=== PATIENT | female | born 1995 | race Caucasian/White ===

== ENCOUNTER 2018-07-12 01:04 | Inpatient (IN) | payer OTHER ==
[2018-07-12] MEDS ORDERED: Water For Irrigation,Sterile 1,000 ML Container IRR PRN (01:22)
[2018-07-12] MEDS ORDERED: Nalbuphine 10 MG/1 ML Vial IVPUSH PRN (01:22)
[2018-07-12] MEDS ORDERED: Carboprost Tromethamine 250 MCG/1 ML Amp IM PRN (01:22)
[2018-07-12] MEDS ORDERED: Tranexamic Acid 1,000 MG in Sodium Chloride 0.9% 100 ML IV PRN (01:22)
[2018-07-12] MEDS ORDERED: Sodium Chloride 0.9% 2.5 ML Syringe FLUSH PRN (01:22)
[2018-07-12] MEDS ORDERED: Butorphanol 1 MG/ML SDV IVPUSH PRN (01:22)
[2018-07-12] MEDS ORDERED: Lidocaine 1% 50 ML MDV INJECT PRN (01:22)
[2018-07-12] MEDS ORDERED: Sodium Chloride 0.9% 10 ML Syringe FLUSH PRN (01:22)
[2018-07-12] MEDS ORDERED: Methylergonovine 0.2 MG/1 ML Amp IM PRN (01:22)
[2018-07-12] MEDS ORDERED: Misoprostol 200 MCG Tab PO PRN (01:22)
[2018-07-12] MEDS ORDERED: Oxytocin/0.9 % Sodium Chloride 30 UNIT/500 ML BAG IV SCH (01:30)
[2018-07-12] MEDS ORDERED: Lactated Ringers 1,000 ML IV SCH (01:30)
[2018-07-12] MEDS ORDERED: Benzocaine/Menthol 20%-0.5% Spray 78 GM Cannister TOP PRN (02:00)
[2018-07-12] MEDS ORDERED: Bisacodyl 10 MG Supp RECTAL PRN (02:00)
[2018-07-12] MEDS ORDERED: Ondansetron 4 MG/2 ML SDV IVPUSH PRN (02:00)
[2018-07-12] MEDS ORDERED: oxyCODONE 5 MG Tab PO PRN (02:00)
[2018-07-12] MEDS ORDERED: Ibuprofen 400 MG Tab PO PRN (02:00)
[2018-07-12] MEDS ORDERED: Lanolin 100% Cream 7 GM Tube TOP PRN (02:00)
[2018-07-12] MEDS ORDERED: Docusate Sodium 100 MG Cap PO PRN (02:00)
[2018-07-12] MEDS ORDERED: Acetaminophen 500 MG Tab PO PRN ×2 (02:00)
--- NOTE | 2018-07-12 02:08 | PCM.OPNOTE ---
- General Post-Op/Procedure Note Date of Surgery/Procedure: 07/12/18 Operative Procedure(s): /2nd MLL repaired Findings: Viable male APGARS 8. 9 weight 3080 gm. Spontaneous delivery intact placenta with 3V cord Pre Op Diagnosis: 40/2 week IUP. Active labor Post-Op Diagnosis: same Anesthesia Technique: Local (pudendal) Primary Surgeon: Love Vasquez EBL in mLs: 350 Complications: None Condition: Good Free Text/Narrative:: Dictation [id number]
[2018-07-12] MEDS: Ibuprofen 800 MG Tab PO PRN ×2 (02:23→17:39)
[2018-07-12] MEDS: Witch Hazel Medicated Pads 40/Jar TOP PRN ×2 (02:24→21:09)
--- NOTE | 2018-07-12 03:15 | OR ---
SURGEON: Love Vasquez M.D. DATE OF PROCEDURE: 07/12/2018 PREOPERATIVE DIAGNOSES: 1. A 40 and 2 week intrauterine . 2. Active labor. POSTOPERATIVE DIAGNOSES: 1. A 40 and 2 week intrauterine . 2. Active labor. PROCEDURE: Spontaneous vaginal delivery, second-degree midline laceration repaired ANESTHESIA: Pudendal/local. ESTIMATED BLOOD LOSS: 350 mL. FINDINGS: Viable male with scores 8 at one minute, 9 at five minutes. Weight of 3080 g. Spontaneous delivery, intact placenta, 3-vessel cord. DISPOSITION: to nursery, mom in LDRP. 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 On initial examination, she was found to be 8 cm dilated. Therefore, she was admitted, routine labs drawn, IV hydration was initiated. 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 She denies any prodrome of symptoms. On bright light exam, no lesions are identified. The patient fairly quickly progressed to complete with bulging bag of water. Therefore, she is requesting something for pain. After discussion, we have opted to proceed with a pudendal block. The patient was placed in modified dorsal lithotomy position, was prepped and draped in the usual aseptic manner. The ischial spine on either side was able to be palpated and pudendal notch was able to be palpated. I was able to introduce 5 mL of 1% lidocaine along the left side followed by the right side and another 5 mL along the midline perineum. Shortly thereafter, the patient was feeling very much urge to push. She was complete 100% effaced, +3 station. Amniotomy was performed. Clear fluid was returned. The patient pushed and was able to deliver the head atraumatically spontaneously followed by anterior shoulder, posterior shoulder, and remaining body without difficulty. The 's oropharynx and nares were bulb suctioned. was handed off to his mother with attending nursing staff at her side. Cord was clamped x2 and cut. Cord arterial, cord venous, cord blood sampling was obtained. Light suprapubic pressure was applied. The placenta was delivered spontaneously intact. Vigorous fundal uterine massage was then applied while 30 units of Pitocin was delivered in 500 mL of IV fluid. Upon inspection of cervix, vaginal sidewall, and perineum, there was found to be a second-degree midline laceration. This was repaired using 3-0 Vicryl in the usual fashion. The patient has tolerated this procedure well. Uterus remained firm. Hemostasis remained evident. Sponge count and needle count were correct. The patient remained in LDRP. to nursery. ARABELLA / ALMA ROSA /[id number]
[2018-07-13] MEDS: Ibuprofen 800 MG Tab PO PRN (03:14)
--- NOTE | 2018-07-13 08:46 | PCM.PNPP ---
- General Info Date of Service: 07/13/18 Functional Status: Reports: Pain Controlled, Tolerating Diet, Ambulating, Urinating - Review of Systems General: Denies: Fever, Weakness Pulmonary: Denies: Shortness of Breath Cardiovascular: Denies: Chest Pain, Palpitations, Lightheadedness Gastrointestinal: Denies: Nausea, Vomiting Genitourinary: Denies: Flank Pain Musculoskeletal: Reports: No Symptoms Skin: Reports: No Symptoms Neurological: Reports: No Symptoms Psychiatric: Reports: No Symptoms - General Info Date of Service: 07/13/18 - Patient Data Vital Signs - Most Recent: Last Vital Signs Temp 36.7 C 07/13/18 04:28 Pulse 83 07/13/18 04:28 Resp 16 07/13/18 04:28 BP 104/53 L 07/13/18 04:28 Pulse Ox 97 07/13/18 04:28 Lab Results - Last 24 Hours: Laboratory Results - last 24 hr 07/13/18 Range/Units 05:45 Hgb 10.6 L (12.0-16.0) g/dL Hct 32.5 L (36.0-46.0) % Med Orders - Current: Current Medications Acetaminophen (Tylenol Extra Strength) 500 mg PO Q4H PRN PRN Reason: Pain Acetaminophen (Tylenol Extra Strength) 1,000 mg PO Q4H PRN PRN Reason: Pain Last Admin: 07/12/18 11:20 Dose: 1,000 mg Benzocaine/Menthol (Dermoplast Pain Relief 20%-0.5% Tobias) 78 gm TOP ASDIRECTED PRN PRN Reason: Perineal Comfort Measure Last Admin: 07/12/18 02:24 Dose: 1 can Bisacodyl (Dulcolax) 10 mg RECTAL ONETIME PRN PRN Reason: Constipation Carboprost Tromethamine (Hemabate Ds) 250 mcg IM ASDIRECTED PRN PRN Reason: Post Hemorrhage Docusate Sodium (Colace) 100 mg PO BID PRN PRN Reason: Constipation Emollient Ointment (Lansinoh Hpa) 0 gm TOP ASDIRECTED PRN PRN Reason: Sore Nipples Lactated Ringer's (Ringers, Lactated) 1,000 mls @ 150 mls/hr IV ASDIRECTED TINA Oxytocin/Sodium Chloride (Oxytocin 30 Unit/500 Ml-Ns) 30 unit in 500 mls @ 500 mls/hr IV TITRATE TINA Tranexamic Acid 1,000 mg/ (Sodium Chloride) 110 mls @ 660 mls/hr IV ONETIME PRN PRN Reason: Bleeding Ibuprofen (Motrin) 400 mg PO Q4H PRN PRN Reason: Pain Ibuprofen (Motrin) 800 mg PO Q6H PRN PRN Reason: Pain Last Admin: 07/13/18 03:14 Dose: 800 mg Lidocaine HCl (Xylocaine 1%) 50 ml INJECT ONETIME PRN PRN Reason: Laceration repair Last Admin: 07/12/18 01:43 Dose: 50 ml Methylergonovine Maleate (Methergine) 0.2 mg IM ASDIRECTED PRN PRN Reason: Post Hemorrhage Misoprostol (Cytotec) 200 mcg PO ONETIME PRN PRN Reason: Post Hemorrhage Ondansetron HCl (Zofran) 4 mg IVPUSH Q6H PRN PRN Reason: Nausea/Vomiting Oxycodone HCl (Oxycodone) 5 mg PO Q2H PRN PRN Reason: Pain Last Admin: 07/12/18 11:20 Dose: 5 mg Sodium Chloride (Saline Flush) 10 ml FLUSH ASDIRECTED PRN PRN Reason: Keep Vein Open Sodium Chloride (Saline Flush) 2.5 ml FLUSH ASDIRECTED PRN PRN Reason: Keep Vein Open Sterile Water (Sterile Water For Irrigation) 1,000 ml IRR ASDIRECTED PRN PRN Reason: delivery Last Admin: 07/12/18 01:43 Dose: 1,000 ml Witch Xiomy (Tucks) 1 pad TOP ASDIRECTED PRN PRN Reason: comfort care Last Admin: 07/12/18 02:24 Dose: 1 tub Discontinued Medications Butorphanol Tartrate (Stadol) 1 mg IVPUSH Q1H PRN PRN Reason: Pain Nalbuphine HCl (Nubain) 10 mg IVPUSH Q1H PRN PRN Reason: Pain (severe 7-10) - Interaction Support Person: - Recovery Exam Fundal Tone: Firm Fundal Level: 1 Fingerbreadths Below Umbilicus Fundal Placement: Midline Lochia Amount: Scant Lochia Color: Rubra/Red Perineum Description: Other (see below) Other Perinuem Description: 2nd deg laceration Episiotomy/Laceration: Approximated Bladder Status: Nonpalpable, Voiding Urinary Elimination: Voided - Exam General: Alert, Oriented Lungs: Normal Respiratory Effort Cardiovascular: Regular Rate, Regular Rhythm GI/Abdominal Exam: Normal Bowel Sounds, Soft Extremities: Pedal Edema (trace). No: Maria Esther's Sign Skin: Warm, Dry, Intact Neurological: No New Focal Deficit Psy/Mental Status: Alert, Normal Affect - Problem List & Annotations (1) Vaginal delivery SNOMED Code(s): 413301742 Code(s): O80 - ENCOUNTER FOR FULL-TERM UNCOMPLICATED DELIVERY Status: Acute Current Visit: Yes - Problem List Review Problem List Initiated/Reviewed/Updated: Yes - My Orders Last 24 Hours: My Active Orders 07/13/18 08:43 Ready for Discharge [RC] PER UNIT ROUTINE - Assessment Assessment:: PPD 1 status post /2nd MLL repaired - Plan Plan:: VS are stable, labs stable. Discharge to home today. Infection and bleeding warning reviewed. Discharge instructions reviewed. Follow up at [facility] 6 weeks.
[2018-07-13 09:24] VITALS: BP 117/63
== END 2018-07-13 11:00 | disposition home or self-care (01) | DRG 806 ==
LOC: MW.OBCHECK 01:04 → MW.OB 01:07 → MW.OBCHECK 01:14 → MW.OB 01:22 → OBSVTOIN 01:43 → MW.OB 09:15
PROVIDERS: ADMIT Obstetrics & Gynecology; ATTEND Obstetrics & Gynecology
PROC: 10E0XZZ Delivery of Products of Conception, External Approach (ICD-10-PCS; principal; 2018-07-12)
PROC: 0KQM0ZZ Repair Perineum Muscle, Open Approach (ICD-10-PCS; 2018-07-12)
PROC: 10907ZC Drainage of Amniotic Fluid, Therapeutic from Products of Conception, Via Natural or Artificial Opening (ICD-10-PCS; 2018-07-12)
PROC: 6A550ZT Pheresis of Cord Blood Stem Cells, Single (ICD-10-PCS; 2018-07-12)
DX: O70.1 Second degree perineal laceration during delivery (principal); O98.32 Other infections with a predominantly sexual mode of transmission complicating childbirth; Z37.0 Single live birth; Z3A.40 40 weeks gestation of pregnancy
CPT/HCPCS: 36415; 59025; 59409; 82803; 85014; 85018; 85027; 86850; 86900; 86901; A9270-GY